=== PATIENT | male | born 1995 ===

== ENCOUNTER 2023-04-12 20:58 | Emergency (ER) | payer SELFPAY ==
[~2023-04-12] VITALS: Ht 167.6 cm; Wt 84.1 kg
[2023-04-12 21:05] VITALS: BP 147/82; PULSE 102; RESP 16; TEMP 100.2; O2SAT 98
== END 2023-04-12 23:00 | disposition home or self-care (01) ==
LOC: ER 21:03
DX: Z02.79 Encounter for issue of other medical certificate (principal); V89.2XXA Person injured in unspecified motor-vehicle accident, traffic, initial encounter; Y93.89 Activity, other specified; Y92.89 Other specified places as the place of occurrence of the external cause; Y99.8 Other external cause status
CPT/HCPCS: 99283